=== PATIENT | female | born 2000 | race Two or more races ===

== ENCOUNTER 2022-11-10 16:42 | Emergency (ER) | payer SELFPAY ==
[~2022-11-10] VITALS: Ht 162.6 cm; Wt 49.0 kg
[2022-11-10 18:34] LABS: Urine Bacteria FEW /hpf (None Seen); Urine Blood Negative /uL (Negative); Urine Mucus FEW (None Seen); Urine Specific Gravity 1.023 (1.001-1.035); Urine WBC 2 /hpf (0 - 5)
[2022-11-10 22:14] VITALS: BP 114/66
== END 2022-11-10 22:19 | disposition home or self-care (01) ==
LOC: EDBD 16:42 → ER 16:42
DX: N93.9 Abnormal uterine and vaginal bleeding, unspecified (principal); R10.2 Pelvic and perineal pain
CPT/HCPCS: 36415; 81001; 84702